=== PATIENT | female | born 1965 | race Caucasian/White ===

== ENCOUNTER 2021-03-07 11:29 | Emergency (ER) | payer MEDICAID, OTHER ==
[2021-03-07 11:47] VITALS: BP 133/90
[2021-03-07 12:22] LABS: BILIRUBIN,URINE NEGATIVE (NEGATIVE); CLARITY,URINE CLEAR (CLEAR); GLUCOSE, URINE (UA) NEGATIVE (NEGATIVE); KETONES,URINE (UA) NEGATIVE (NEGATIVE); LEUKOCYTE ESTERASE, URINE SMALL (NEGATIVE); NITRITE,URINE NEGATIVE (NEGATIVE); OCCULT BLOOD,URINE NEGATIVE (NEGATIVE); PROTEIN,URINE NEGATIVE (NEGATIVE); UROBILINOGEN,URINE 0.2 (NORMAL) E.U./dL (NORMAL)
[2021-03-07 12:27] LABS: BACTERIA,URINE Rare /HPF (None Seen); RBC,URINE 0-5 /HPF (0-5); SQUAMOUS EPITHELIAL CELL,UR FEW Squamous (<= Few)
[2021-03-07] MEDS ORDERED: NITROFURANTOIN MACRO 100 MG CAPSULE PO STA (12:38)
--- NOTE | 2021-03-07 12:41 | ED Physician Documentation ---
History of Present Illness - Stated complaint Stated Complaint: FEMALE - Chief complaint Chief Complaint: UTI - Additonal information Additional information: 55-year-old female presents the emergency department for evaluation of 2 days ur inary discomfort which includes frequency, urgency dysuria. She states it feels like UTIs that she has had in the past but her most recent one was about 4 years ago. She has been in menopause for about 4 years. Denies any recent sexual activity. Denies any flank pain fevers or vomiting. Denies history of diabetes. otherwise appears well Review of Systems Constitutional: denies: Fever, Chills Eyes: reports: Reviewed and negative Nose: reports: Reviewed and negative Throat: reports: Reviewed and negative Cardiac: reports: Reviewed and negative Respiratory: reports: Reviewed and negative GI: denies: Abdominal Pain, Nausea, Vomiting : reports: Dysuria, Frequency, Hesitancy, Hematuria Skin: reports: Reviewed and negative Musculoskeletal: reports: Reviewed and negative Neurologic: reports: Reviewed and negative Psychiatric: reports: Reviewed and negative PD PAST MEDICAL HISTORY - Present Medications Home Medications: Ambulatory Orders Medication Instructions Recorded Confirmed Nitrofurantoin [Macrobid] 100 mg PO BID #14 03/07/21 Phenazopyridine HCl [Pyridium] 200 mg PO TID PRN #6 tablet 03/07/21 - Allergies Allergies/Adverse Reactions: Allergies Allergy/AdvReac Type Severity Reaction Status Date / Time No Known Drug Allergies Allergy Verified 03/07/21 11:47 PD ED PE NORMAL - General General: Alert and oriented X 3, No acute distress - HEENT HEENT: PERRL - Cardiac Cardiac: RRR, No murmur - Respiratory Respiratory: Clear bilaterally - Abdomen Abdomen: Normal bowel sounds, Soft, Non distended. No: Non tender (Mild suprapubic tenderness. No flank CVA tenderness or low back pain elicited.) - Back Back: No CVA TTP, No spinal TTP Results - Vitals Vitals: Vital Signs - 24 hr 03/07/21 11:43 Temperature 36.3 C L Heart Rate 69 Respiratory 16 Rate Blood Pressure 133/90 H O2 Saturation 100 Oxygen O2 Source Room air - Labs Labs: Laboratory Tests 03/07/21 11:48 Urine Color YELLOW Urine Clarity CLEAR Urine pH 6.0 Ur Specific [place] 1.020 Urine Protein NEGATIVE Urine Glucose (UA) NEGATIVE Urine Ketones NEGATIVE Urine Occult Blood NEGATIVE Urine Nitrite NEGATIVE Urine Bilirubin NEGATIVE Urine Urobilinogen 0.2 (NORMAL) Ur Leukocyte Esterase SMALL H Urine RBC 0-5 Urine WBC 11-25 H Ur Squamous Epith Cells FEW Squamous Urine Bacteria Rare Ur Microscopic Review INDICATED Urine Culture Comments INDICATED PD MEDICAL DECISION MAKING - ED course Complexity details: reviewed results, re-evaluated patient, d/w patient ED course: 55-year-old female presents the emergency department with 2 days of urinary discomfort, urgency frequency and painful urination. Urine suggests an early infection with moderate WBCs small amount of LE and moderate bacteria. Cultures pending. Will start empirically on Macrobid. No signs of a sending infection or pyelo. Emergent return precautions discussed for worsening symptoms. Departure - Departure Disposition: Home, Self Care Clinical Impression: Cystitis Condition: Stable Record reviewed to determine appropriate education?: Yes Instructions: ED UTI Cystitis Female Prescriptions: Nitrofurantoin [Macrobid] 100 mg PO BID #14 Phenazopyridine HCl [Pyridium] 200 mg PO TID PRN #6 tablet PRN Reason: dysuria Comments: Ash the urine suggests that you have a urinary tract infection that is early in its course. Please fill the prescription for the Macrobid take twice daily for the next 7 days. Of also is prescribed Pyridium which will turn your urine bright orange which should help relieve the discomfort. If at any point you feel that your symptoms are worsening, you develop flank pain, have fevers or vomiting please return to the ER for a second evaluation.
== END 2021-03-07 13:04 | disposition home or self-care (01) ==
LOC: ED 11:29
DX: N30.90 Cystitis, unspecified without hematuria (principal)
CPT/HCPCS: 81001; 87086; 99283; A9270; 81003

== ENCOUNTER 2021-04-30 04:11 | Emergency (ER) | payer MEDICAID ==
[2021-04-30 04:58] LABS: BASOPHILS % (AUTO) 0.3 %; EOSINOPHILS % (AUTO) 0.2 %; HCT - HEMATOCRIT 46.6 % (37.0-47.0); LYMPHOCYTES # (AUTO) 1.4 10^3/uL (1.5-3.5); LYMPHOCYTES % (AUTO) 12.8 %; MEAN CORPUSCULAR HEMOGLOBIN 29.4 pg (27.0-31.0); MEAN CORPUSCULAR HGB CONC 34.3 g/dL (32.0-36.0); MEAN CORPUSCULAR VOLUME 85.7 fL (81.0-99.0); MEAN PLATELET VOLUME 8.7 fL (7.9-10.8); MONOCYTES # (AUTO) 0.7 10^3/uL (0.0-1.0); MONOCYTES % (AUTO) 6.6 %; NEUTROPHILS # (AUTO) 8.5 10^3/uL (1.5-6.6); NEUTROPHILS % (AUTO) 79.9 %; PLT - PLATELET COUNT 277 10^3/uL (130-450); RED BLOOD COUNT 5.44 10^6/uL (4.20-5.40); RED CELL DISTRIBUTION WIDTH 12.9 % (12.0-15.0); WHITE BLOOD COUNT 10.6 x10^3/uL (4.8-10.8)
[2021-04-30 05:02] LABS: GLUCOSE, URINE (UA) NEGATIVE (NEGATIVE); KETONES,URINE (UA) >=80 mg/dL (NEGATIVE); LEUKOCYTE ESTERASE, URINE MODERATE (NEGATIVE); NITRITE,URINE NEGATIVE (NEGATIVE); OCCULT BLOOD,URINE TRACE-INTA (NEGATIVE); PROTEIN,URINE TRACE mg/dL (NEGATIVE); UROBILINOGEN,URINE 0.2 (NORMAL) E.U./dL (NORMAL)
[2021-04-30 05:10] LABS: BILIRUBIN,URINE NEGATIVE (NEGATIVE); ICTOTEST,URINE NEGATIVE
[2021-04-30 05:11] LABS: CLARITY,URINE HAZY (CLEAR)
[2021-04-30 05:12] LABS: ALBUMIN 4.6 g/dL (3.2-5.5); ALBUMIN/GLOBULIN RATIO 1.6 (1.0-2.2); BACTERIA,URINE Few /HPF (None Seen); BILIRUBIN,TOTAL 0.8 mg/dL (0.2-1.0); CALCIUM 9.4 mg/dL (8.5-10.3); CREATININE 0.6 mg/dL (0.4-1.0); MUCUS,URINE Few Strands; POTASSIUM 3.3 mmol/L (3.5-5.0); RBC,URINE 0-5 /HPF (0-5); SQUAMOUS EPITHELIAL CELL,UR FEW Squamous (<= Few); TOTAL PROTEIN 7.5 g/dL (6.7-8.2)
[2021-04-30] MEDS ORDERED: SODIUM CHLORIDE 0.9% 1,000 ML IV STA (05:13)
[2021-04-30] MEDS ORDERED: ONDANSETRON 4 MG/2 ML VIAL IVP STA (05:13)
[2021-04-30] MEDS ORDERED: ONDANSETRON 4 MG/2 ML VIAL ONE (05:18)
[2021-04-30 05:24] LABS: PLATELET ESTIMATE, MANUAL NORMAL (130-450,000) (NORMAL)
--- NOTE | 2021-04-30 05:33 | ED Physician Documentation ---
PD HPI NVD - Stated complaint Stated Complaint: VOMITING - Chief complaint Chief Complaint: Abd Pain - History obtained from History obtained from: Patient - History of Present Illness Timing - onset: How many days ago (2) Timing - details: Abrupt onset, Waxing and waning Pain level now: 3 Associated symptoms: Abdominal pain. No: Fever, Chest pain, Hematemesis Improved by: Other (no ameliorating factors) Worsened by: Eating Recently seen: Not recently seen - Additonal information Additional information: c/o 2 days of nausea, vomiting with epigastric pain that waxes and wanes and radiates to back. She says the symptoms started after eating dinner at a restaurant 2 days ago. denies diarrhea. patient is covid vaccinated. Review of Systems Constitutional: denies: Fever, Chills, Sweats Cardiac: reports: Reviewed and negative Respiratory: reports: Reviewed and negative GI: reports: Abdominal Pain, Nausea, Vomiting. denies: Abdominal Swelling, Constipation, Diarrhea : denies: Dysuria, Frequency PD PAST MEDICAL HISTORY - Past Medical History Past Medical History: Yes - Past Surgical History Past Surgical History: Yes General: Bowel surgery - Present Medications Home Medications: Ambulatory Orders Medication Instructions Recorded Confirmed Ondansetron Odt [Zofran Odt] 4 mg TL Q6H PRN #14 tablet 04/30/21 - Allergies Allergies/Adverse Reactions: Allergies Allergy/AdvReac Type Severity Reaction Status Date / Time No Known Drug Allergies Allergy Verified 04/30/21 04:32 - Social History Does the pt smoke?: No Smoking Status: Never smoker Does the pt drink ETOH?: Yes Does the pt have substance abuse?: No - Immunizations Immunizations are current?: Yes - POLST Patient has POLST: No PD ED PE NORMAL - Vitals Vital signs reviewed: Yes - General General: Alert and oriented X 3, No acute distress, Well developed/nourished - HEENT HEENT: Other (tacky mucous membranes) - Cardiac Cardiac: RRR, No murmur - Respiratory Respiratory: No respiratory distress, Clear bilaterally - Abdomen Abdomen: Soft, Non tender, Non distended - Back Back: No CVA TTP - Derm Derm: Normal color, Warm and dry Results - Vitals Vitals: Oxygen O2 Source Room air - Labs Labs: Microbiology 04/30/21 04:52 Urine Culture - Final Urine,Clean Catch >100,000 COLONIES/ML Polymicrobial growth including potential pathogens. This is suggestive of skin or other contamination. Laboratory Tests 04/30/21 04/30/21 04/30/21 04:52 04:52 04:52 WBC 10.6 RBC 5.44 H Hgb 16.0 Hct 46.6 MCV 85.7 MCH 29.4 MCHC 34.3 RDW 12.9 Plt Count 277 MPV 8.7 Neut # (Auto) 8.5 H Lymph # (Auto) 1.4 L [place] # (Auto) 0.7 Eos # (Auto) 0.0 Baso # (Auto) 0.0 Absolute Nucleated RBC 0.00 Nucleated RBC % 0.0 Platelet Estimate NORMAL (130-450,000) Sodium 128 L Potassium 3.3 L Chloride 88 L Carbon Dioxide 28 Anion Gap 12.0 BUN 10 Creatinine 0.6 Estimated GFR (MDRD) 103 Glucose 125 H Calcium 9.4 Total Bilirubin 0.8 AST 25 ALT 30 Alkaline Phosphatase 66 Total Protein 7.5 Albumin 4.6 Globulin 2.9 Albumin/Globulin Ratio 1.6 Lipase 25 Urine Color YELLOW Urine Clarity HAZY Urine pH 7.0 Ur Specific [place] 1.020 Urine Protein TRACE Urine Glucose (UA) NEGATIVE Urine Ketones >=80 H Urine Occult Blood TRACE-INTA Urine Nitrite NEGATIVE Urine Bilirubin NEGATIVE Urine Urobilinogen 0.2 (NORMAL) Ur Leukocyte Esterase MODERATE H Urine RBC 0-5 Urine WBC 11-25 H Ur Squamous Epith Cells FEW Squamous Urine Bacteria Few Urine Mucus Few Strands Ur Microscopic Review INDICATED Urine Culture Comments INDICATED - Rads (name of study) abd. US Radiology: Prelim report reviewed, See rad report PD MEDICAL DECISION MAKING - ED course Complexity details: reviewed results, re-evaluated patient, considered differential, d/w patient ED course: given IV NS and zofran which resulted in resolution of her nausea/vomiting. Abdominal US is unremarkable. CBC is unremarkable. Mild hyponatremia which should improve with IV NS and can be rechecked if clinically indicated in outpatient f/u. She has mild hypokaemia (3.3 potassium) and, given her presentation of 2 days of n/v, she is not given PO potassium in ED for this mild abnormality which can also be rechecked in outpatient setting at discretion of her primary care provider. Her urinalysis shows leukocytes (macro and micro testing), but she has no symptoms of UTI and thus this is not treated but appropriate action can be taken should her urine culture show results c/w UTI Departure - Departure Disposition: 01 Home, Self Care Clinical Impression: Abdominal pain Qualifiers: Abdominal location: upper abdomen, unspecified Qualified Code(s): R10.10 - Upper abdominal pain, unspecified Vomiting Qualifiers: Vomiting type: unspecified Vomiting Intractability: non-intractable Nausea presence: with nausea Qualified Code(s): R11.2 - Nausea with vomiting, unspecified Condition: Good Instructions: ED Abdominal Pain Unkn Cause, ED Nausea Vomiting Prescriptions: Ondansetron Odt [Zofran Odt] 4 mg TL Q6H PRN #14 tablet PRN Reason: Nausea / Vomiting Discharge Date/Time: 04/30/21 08:30
[2021-04-30 07:13] VITALS: BP 109/66
--- NOTE | 2021-04-30 08:58 | Ultrasound Report ---
PROCEDURE: Abdomen Complete INDICATIONS: abdominal pain, n/v TECHNIQUE: Real-time scanning was performed of the abdominal and retroperitoneal organs, with image documentatio n. COMPARISON: None. FINDINGS: Liver: Liver is normal in size and homogeneous in echotexture. Gallbladder: No stones are identified. Wall thickness is within normal limits measuring 1.2 mm. No pe richolecystic fluid. Biliary ducts: Intrahepatic bile ducts are non-dilated. Extrahepatic bile duct caliber measures 5 m m. Normal is 6-7 mm or less in diameter, or 10 mm or less post-cholecystectomy. Pancreas: Visualized portions of the pancreas are sonographically normal. Spleen: Spleen is normal in size and homogeneous in echotexture. Kidneys: Kidneys are normal in size and echotexture. Right kidney measures 10.4 cm long; left kidne y measures 10.1 cm long. No hydronephrosis or nephrolithiasis. No solid masses. Aorta: Visualized aorta is normal in caliber at less than 3 cm. Iliacs: Proximal common iliac arteries are normal in caliber at less than 2.5 cm. IVC: Intrahepatic inferior vena cava is patent. Miscellaneous: No free abdominal fluid. IMPRESSION: Unremarkable exam. The above findings are concordant with preliminary report. Reviewed by: Emily Johnson MD on 04/30/2021 8:56 AM PDT Approved by: Emily Johnson MD on 04/30/2021 8:56 AM PDT Station ID: [id number]
== END 2021-04-30 08:30 | disposition home or self-care (01) ==
LOC: ED 04:11
DX: R10.30 Lower abdominal pain, unspecified (principal); R11.2 Nausea with vomiting, unspecified; E87.1 Hypo-osmolality and hyponatremia
CPT/HCPCS: 36415; 80053; 81001; 81003; 83690; 85025; 87086; 96361; 96374; 99284

== ENCOUNTER 2021-08-30 14:50 | Emergency (ER) | payer MEDICAID ==
[2021-08-30 15:17] VITALS: BP 138/83
--- NOTE | 2021-08-30 16:20 | CT Report ---
PROCEDURE: HEAD WO INDICATIONS: visual change TECHNIQUE: Noncontrast 4.5 mm thick angled axial sections acquired from the foramen magnum to the vertex. For r adiation dose reduction, the following was used: automated exposure control, adjustment of mA and/or kV according to patient size. COMPARISON: None. FINDINGS: Image quality: Excellent. CSF spaces: Basal cisterns are patent. No extra-axial fluid collections. Ventricles are normal in size and shape. Brain: No midline shift. No intracranial masses or hemorrhage. Perdomo-white matter interface is norm al. Skull and face: Calvarium and visualized facial bones are intact, without suspicious lesions. Sinuses: Visualized sinuses and mastoids are clear. IMPRESSION: No acute intracranial disease process. Reviewed by: Eryn Wall MD, PhD on 08/30/2021 4:19 PM PST Approved by: Eryn Wall MD, PhD on 08/30/2021 4:19 PM PST Station ID: [id number]
--- NOTE | 2021-08-30 16:50 | ED Physician Documentation ---
History of Present Illness - Stated complaint Stated Complaint: R EYE VISION DECREASE - Chief complaint Chief Complaint: Heent - History obtained from History obtained from: Patient - Additonal information Additional information: Patient comes emergency department for chief complaint of visual changes that started last night. Patient states she woke up with the sense of needing to urinate, and turned over in bed and suddenly noticed a flash in her right eye. She states when she opened her eyes, she noticed what seemed to be a curtain floating in her vision. Patient states she went to the bathroom and then went back to bed and return to sleep; however, when she woke up, she had a number of floaters in her right eye vision. She states she also noticed that it seemed like just the very bottom of her vision in the inferomedial quadrant was blank, as though she had something blocking just the very edge. Patient denies any pain, injection, or drainage. She uses contact lenses and states that her vision other than the floaters and curtainlike visual loss has been normal. She had a headache several days ago, but states that has gone away. She denies any history of retinal procedures. No neurologic symptoms of any other kind. Patient states she is otherwise healthy. No recent jarring head trauma. No other complaints at this time. Review of Systems Ten Systems: 10 systems reviewed and negative Constitutional: reports: Reviewed and negative Eyes: reports: Loss of vision Ears: reports: Reviewed and negative Nose: reports: Reviewed and negative Throat: reports: Reviewed and negative Cardiac: reports: Reviewed and negative Respiratory: reports: Reviewed and negative GI: reports: Reviewed and negative : reports: Reviewed and negative Skin: reports: Reviewed and negative Musculoskeletal: reports: Reviewed and negative Neurologic: reports: Reviewed and negative Psychiatric: reports: Reviewed and negative Endocrine: reports: Reviewed and negative Immunocompromised: reports: Reviewed and negative PD PAST MEDICAL HISTORY - Past Surgical History Past Surgical History: Yes General: Bowel surgery - Present Medications Home Medications: Ambulatory Orders Medication Instructions Recorded Confirmed No Known Home Medications 08/30/21 08/30/21 - Allergies Allergies/Adverse Reactions: Allergies Allergy/AdvReac Type Severity Reaction Status Date / Time No Known Drug Allergies Allergy Verified 04/30/21 04:32 - Social History Does the pt smoke?: No Smoking Status: Never smoker Does the pt drink ETOH?: Yes Does the pt have substance abuse?: No - Immunizations Immunizations are current?: Yes - POLST Patient has POLST: No PD ED PE NORMAL - Vitals Vital signs reviewed: Yes - General General: Alert and oriented X 3, No acute distress, Well developed/nourished - HEENT HEENT: Atraumatic, PERRL, EOMI, Moist mucous membranes, Other (Funduscopic exam reveals normal vasculature. The superolateral quadrant does appear to have some vega discoloration, though on this nondilated exam, visualization is somewhat limited. No conjunctival injection. No foreign body.) - Neck Neck: Supple, no meningeal sign - Respiratory Respiratory: No respiratory distress - Derm Derm: Normal color, Warm and dry, No rash - Extremities Extremities: No deformity, No edema - Neuro Neuro: Alert and oriented X 3, stock patcher 2-12 intact, No motor deficit, No sensory deficit, Normal speech, Other (Visual acuity 20/20 left eye, 20/30 right eye, 20/20 eyes together) - Psych Psych: Normal mood, Normal affect Results - Vitals Vitals: Oxygen O2 Source Room air - Rads (name of study) CT head Radiology: Final report received, EMP read indepedently, See rad report (Negative) PD MEDICAL DECISION MAKING - ED course Complexity details: reviewed results, re-evaluated patient, considered differential, d/w patient ED course: The patient's symptoms were consistent with and concerning for retinal detachment. The patient was sent for CT scan of the head which showed no concerning findings, and the patient did not have any other focal neurologic deficits to indicate a high probability of stroke. I spoke with Dr. Gabriel Barrera, who is on-call for [facility], and he did offer to either have the patient come over to [facility] to see their on-call, or come at 10:00 tomorrow morning to [facility]'s [place] office to see Dr. Senior. The patient stated she would prefer to take the 10:00 appointment tomorrow. We have discussed the usual indications for return. Departure - Departure Disposition: 01 Home, Self Care Clinical Impression: Visual changes Retinal detachment Qualifiers: Laterality: right Qualified Code(s): H33.21 - Serous retinal detachment, right eye Condition: Stable Instructions: ED Detachment Retinal Comments: Your CT scan looks good tonight. Your symptoms are most consistent with a retinal detachment. This will need to be officially diagnosed by the glue spreading machine operator, but your symptoms are very suggestive of this. Your case has been discussed with Dr. Gabriel Barrera, one of the ophthalmology specialists at [facility], who has recommended that you be seen soon. You have been given an appointment at [facility] in [place] at 10:[address] Senior. Please be sure that you go for the appointment, as if you do have a retinal detachment, it is important to get this addressed early. You may continue to wear your contact lenses for now. [facility] [address] [place] [address] Discharge Date/Time: 08/30/21 17:00
== END 2021-08-30 17:00 | disposition home or self-care (01) ==
LOC: ED 14:50
DX: H33.21 Serous retinal detachment, right eye (principal)
CPT/HCPCS: 99282; 99284

== ENCOUNTER 2022-04-20 08:00 | Outpatient (CLI) | payer MEDICAID | END 2022-04-20 23:59 | disposition home or self-care (01) | LOC: LAB 08:00 | PROVIDERS: ATTEND Physician Assistant Medical | DX: R39.15 Urgency of urination (principal); R30.0 Dysuria; R31.9 Hematuria, unspecified | CPT/HCPCS: 87086 ==

== ENCOUNTER 2023-03-05 10:52 | Day surgery (SDC) | payer MEDICAID ==
[~2023-03-05 10:52] MED LIST: ACETAMINOPHEN 500 MG TABLET PO ONE; CELECOXIB 100 MG CAPSULE PO ONE; ceFAZolin 2 GM VIAL ONE
[2023-03-05] MEDS ORDERED: LACTATED RINGERS 1,000 ML IV ONE ×3 (11:16→15:01)
[2023-03-05] MEDS ORDERED: fentaNYL 100 MCG/2 ML VIAL ONE (11:25)
[2023-03-05] MEDS ORDERED: MIDAZOLAM 2 MG/2 ML VIAL ONE (11:25)
[2023-03-05] MEDS ORDERED: MORPHINE 2 MG/ML CARPUJECT IVP PRN (11:38)
[2023-03-05] MEDS ORDERED: ePHEDrine 50 MG/ML VIAL IVP PRN (11:38)
[2023-03-05] MEDS ORDERED: NALOXONE 0.4 MG/ML VIAL IVP PRN (11:38)
[2023-03-05] MEDS ORDERED: ATROPINE ABBOJECT 1 MG/10 ML SYRINGE IVP PRN (11:38)
[2023-03-05] MEDS ORDERED: fentaNYL 100 MCG/2 ML VIAL IVP PRN (11:38)
[2023-03-05] MEDS ORDERED: HYDROmorphone 0.5 MG/0.5 ML SYRINGE IVP PRN (11:38)
[2023-03-05] MEDS ORDERED: METOCLOPRAMIDE 10 MG/2 ML VIAL IVP PRN (11:38)
[2023-03-05] MEDS ORDERED: ONDANSETRON 4 MG/2 ML VIAL IVP PRN ×2 (11:38→15:11)
--- NOTE | 2023-03-05 11:38 | ANESTHESIA ---
Pre-Anesthesia VS, & Labs - Diagnosis R ankle fracture - Procedure ORIF R ankle Vital Signs: Temp Pulse Resp BP Pulse Ox O2 Flow Rate 36 C L 71 16 137/91 H 100 03/05/23 11:08 03/05/23 11:08 03/05/23 11:08 03/05/23 11:08 03/05/23 11:08 Height: 5 ft 4 in Weight (kg): 65 kg Body Mass Index: 24.5 BMI Classification: Normal - NPO >8 hours - Is Patient ?: No - Lab Results Current Lab Results: Laboratory Tests 03/05/23 11:12: POC Whole Bld Glucose 98 Home Medications and Allergies Allergies/Adverse Reactions: Allergies Allergy/AdvReac Type Severity Reaction Status Date / Time No Known Drug Allergies Allergy Verified 03/02/23 22:56 Anes History & Medical History - Anesthetic History Anesthesia Complications: reports: Post-Operative Nausea/Vomiting Family history of Anesthesia Complications: Denies Family history of Malignant Hyperthermia: Denies - Medical History Cardiovascular: reports: None Pulmonary: reports: None Gastrointestinal: reports: None Urinary: reports: None Musculoskeletal: reports: None Endocrine/Autoimmune: reports: None Skin: reports: None Smoking Status: Never smoker Psychosocial: reports: No issues indicated History of Cancer?: No - Surgical History General: reports: Bowel surgery Eyes Ears Nose Throat (EENT): reports: Detached retina repair Gynecologic: reports: section Exam General: Alert, Oriented x3, Cooperative Dental: WNL Mouth Openin Fingerbreadth Neck Mobility: Normal Mallampati classification: I Thyromental Distance: 4-6 cm Respiratory: Lungs clear Cardiovascular: Regular rate Plan Anesthesia Type: General, Popliteal Block, Adductor Block Consent for Procedure(s) Verified and Reviewed: Yes Code Status: Attempt Resuscitation ASA classification: 1-Healthy patient Is this case an emergency?: No
[2023-03-05] MEDS ORDERED: BUPIVACAINE 0.25% PF 30 ML VIAL ONE (11:48)
[2023-03-05] MEDS ORDERED: LACTATED RINGERS 1,000 ML IV SCH (12:00)
[2023-03-05] MEDS ORDERED: VANCOMYCIN 1 GM VIAL ONE (12:14)
[2023-03-05] MEDS ORDERED: DEXAMETHASONE 4 MG/ML VIAL ONE (13:16)
[2023-03-05] MEDS ORDERED: ONDANSETRON 4 MG/2 ML VIAL ONE (13:16)
[2023-03-05] MEDS ORDERED: PROPOFOL 500 MG/50 ML 500 MG/50 ML VIAL ONE (13:18)
[2023-03-05] MEDS ORDERED: BUPIVACAINE 0.25% PF 30 ML VIAL SUBQ ONE (13:24)
[2023-03-05] MEDS ORDERED: VANCOMYCIN 1 GM VIAL MC ONE ×2 (13:24)
[2023-03-05] MEDS ORDERED: HYDROmorphone 1 MG/ML CARPUJECT ONE (13:48)
[2023-03-05] MEDS ORDERED: PROPOFOL 500 MG/50 ML 1,000 MG/100 ML VIAL ONE (13:49)
--- NOTE | 2023-03-05 15:04 | OPERATIVE REPORT ---
Operative Report - General Procedure Date: 03/05/23 Planned Procedure: Open reduction internal fixation trimalleolar fracture right ankle Pre-Op Diagnosis: Displaced trimalleolar fracture right ankle Procedure Performed: Open reduction internal fixation medial malleolus and lateral malleolus right ankle. Arthrex one third semitubular plate for the fibula and 4.0 cancellous screw for the medial malleolus utilized Post Op Diagnosis: Same as preoperative diagnosis - Procedure Note Primary Surgeon: Sd Suero MD Secondary Surgeon: Daksha Rodriguez PAC Anesthesia Provider: Baltazar Roche CRNA Anesthesia Technique: Regional block Estimated Blood Loss (mL): 25 Indications: This is a 57-year-old woman with a history of right ankle injury associated with a fall and twisting injury. She had isolated pain to the right ankle and was initially splinted with elevation and nonweightbearing. She was seen at our orthopedic clinic, evaluated and felt to have a surgical fracture, displaced trimalleolar fracture. Her soft tissue showed swelling, intact skin, no fracture blisters, neurovascular intact. X-ray showed a displaced trimalleolar fracture of the right ankle and verified by CT scan. The medial malleolus was at the joint line, of the fibular fracture was just above the joint line and the posterior malleolar fracture was mostly posterolateral. An informed consent was obtained in our office with the patient agreeing to the surgical procedure for open reduction internal fixation right ankle Findings: The fractures were identified. The medial malleolus fracture was a transverse fracture. The lateral malleolus fracture was long the oblique fracture. No definite articular cartilage damage was identified through the medial arthrotomy Complications: . None - Other Other Information/Narrative: The patient was brought to the operating room, placed in the supine position. A foam bolster was placed beneath the right leg. A pneumatic tourniquet was applied to the proximal right thigh over a stockinette. A bump was placed beneath the right buttock to allow internal rotation of the right leg. The right lower extremity was prepped and draped in sterile manner in the usual fashion. A timeout procedure was performed by the entire operating room team and all were in agreement. The right leg was exsanguinated with a rubber bandage. Pneumatic tourniquet was elevated 250 mmHg. A longitudinal incision was made from the lateral malleolus distally and extended along the posterior border of the fibula the peroneal muscle and tendon was protected. The fracture site to the lateral malleolus was identified, opened, lavage and curette of hematoma. As the fracture was reduced and secured with a K wire and bone clamp. A one third tubular plate was contoured over the posterior aspect of the fibula and secured with bone clamp. The C-arm image intensifier was used to confirm plate position and reduction. None locking screws were inserted through the plate and obtain good fixation of the fracture with at least 2 screws engaging the fracture relatively perpendicular. All the screws were placed through the plate which had been applied posteriorly to the fibula. The tip of the plate was contoured over the lateral malleolus and a screw was inserted through the tip of the lateral malleolus plate. A second anteromedial incision was made over the medial malleolus. The saphenous vein was protected. A medial arthrotomy was made. The fracture was reduced with a pointed bone clamp that was secured through a small drill hole proximal to the fracture. A cannulated screw was then inserted with the guidepin being inserted first, checked with C-arm image intensifier. A 50 mm, partially-threaded 4.0 mm cancellous screw was inserted and provided good fixation to the medial malleolus fracture. The syndesmosis was stressed and found to be stable. There were x-rays that were obtained in AP, mortise and lateral views showed good alignment of fracture and internal fixation. The pneumatic tourniquet was deflated. The wounds were irrigated with dilute Betadine. 1 g of vancomycin powder was placed over the fibular plate. The subcutaneous tissue was closed with 2 oh strata fix, skin was closed standstill arabella. Xeroform was applied to the incisions, dry sterile gauze cast padding and a padded fiberglass splint was applied posteriorly to make a short leg padded fiberglass splint. Patient received 2 g of Ancef intravenously and tolerated the procedure wellA physician blood bank assistant was utilized during the procedure to help with exposure, retraction, wound closure and splint application.
[2023-03-05] MEDS ORDERED: oxyCODONE 5 MG TABLET PO PRN (15:11)
[2023-03-05 15:48] VITALS: BP 101/72
--- NOTE | 2023-03-05 17:28 | ANESTHESIA POST OP EVALUATION ---
Anesthesia Post Eval - Post Anesthesia Eval Vitals: Last Vital Signs Temp 36.4 C L 03/05/23 15:45 Pulse 78 03/05/23 15:45 Resp 16 03/05/23 15:45 BP 101/72 03/05/23 15:45 Pulse Ox 99 03/05/23 15:45 O2 Flow Rate CV Function Including HR & BP: Stable Pain Control: Satisfactory Nausea & Vomiting: Negative Mental Status: Baseline Respiratory Status: Airway Patent Hydration Status: Satisfactory Anesthesia Complications: None
[2023-03-05] MEDS ORDERED: ACETAMINOPHEN 500 MG TABLET PO PRN (17:30)
[2023-03-05] MEDS ORDERED: CELECOXIB 100 MG CAPSULE PO PRN (23:30)
== END 2023-03-05 10:53 | disposition home or self-care (01) ==
LOC: SDS 10:52
PROVIDERS: ATTEND Orthopaedic Surgery
DX: S82.851A Displaced trimalleolar fracture of right lower leg, initial encounter for closed fracture (principal); X50.1XXA Overexertion from prolonged static or awkward postures, initial encounter; W10.2XXA Fall (on)(from) incline, initial encounter; Y92.009 Unspecified place in unspecified non-institutional (private) residence as the place of occurrence of the external cause
CPT/HCPCS: 27822; A9270; J1170; J3370; J7120

== ENCOUNTER 2023-04-22 08:00 | Outpatient (CLI) | payer MEDICAID ==
--- NOTE | 2023-04-22 17:25 | XRAY Report ---
PROCEDURE: Ankle 3 View RT INDICATIONS: RIGHT ANKLE ORIF TECHNIQUE: 3 views of the ankle were acquired. COMPARISON: 03/03/2023 FINDINGS: Bones: Post-ORIF changes are seen in distal fibular shaft and medial malleolus. No evidence of hardw are loosening or failure. Healing at distal fibular shaft and medial malleolus fracture sites are see n with partial bony union. No acute fracture or dislocation. No suspicious bony lesions. Soft tissues: No tibiotalar joint effusion. Achilles tendon appears normal. IMPRESSION: Post-ORIF changes are noted in medial malleolus and distal fibular shaft with near-anatom ic ankle alignment. No gross hardware loosening or failure. No new fracture or dislocation. Reviewed by: Randolph Valdez MD on 04/22/2023 5:24 PM PDT Approved by: Randolph Valdez MD on 04/22/2023 5:24 PM PDT Station ID: [id number]
== END 2023-04-22 23:59 | disposition home or self-care (01) ==
LOC: DI.WOS 08:00
PROVIDERS: ATTEND Orthopaedic Surgery
DX: S82.851D Displaced trimalleolar fracture of right lower leg, subsequent encounter for closed fracture with routine healing (principal)

== ENCOUNTER 2023-05-20 08:00 | Outpatient (CLI) | payer MEDICAID ==
--- NOTE | 2023-05-20 18:45 | XRAY Report ---
PROCEDURE: Ankle 3 View RT INDICATIONS: RIGHT ANKLE FRACTURE TECHNIQUE: 3 views of the ankle were acquired. COMPARISON: 04/22/2023 FINDINGS: Bones: Distal fibular fracture supported by cortical sideplate and screws as well as the medial mall eolus fracture transfixed with cannulated screw. Both fractures show interval bridging callus and rem odeling. Ankle mortise is maintained Soft tissues: Unremarkable without significant soft tissue swelling. No radiopaque foreign body. IMPRESSION: Healing instrumented bimalleolar fracture Reviewed by: Jalil Saldana MD on 05/20/2023 5:44 PM AKDT Approved by: Jalil Saldana MD on 05/20/2023 5:44 PM AKDT Station ID: [id number]
== END 2023-05-20 23:59 | disposition home or self-care (01) ==
LOC: DI.WOS 08:00
PROVIDERS: ATTEND Physician Assistant Surgical
DX: S82.841D Displaced bimalleolar fracture of right lower leg, subsequent encounter for closed fracture with routine healing (principal)